=== PATIENT | male | born 1985 | race Caucasian/White ===

== ENCOUNTER 2016-10-26 12:29 | Emergency (ER) | payer SELFPAY ==
[2016-10-26 12:51] VITALS: BP 137/77
--- NOTE | 2016-10-26 12:53 | ER Document Report ---
HPI - HPI Patient complains to provider of: toothache, abscess Onset: Other - few days Onset/Duration: Gradual Quality of pain: Throbbing Pain Level: 2 Context: 30-year-old male thinks he is a dental abscess due to dental decay. There is pain and swelling to his upper right gingiva and sees what he thinks was a pimple. No fever or chills. No facial swelling. Associated Symptoms: None Exacerbated by: Denies Relieved by: Denies Similar symptoms previously: Yes Recently seen / treated by doctor: No - ROS ROS below otherwise negative: Yes Systems Reviewed and Negative: Yes All other systems reviewed and negative Past Medical History - General Information source: Patient - Social History Smoking Status: Current Every Day Smoker Frequency of alcohol use: None Drug Abuse: None Lives with: Family Family History: Reviewed & Not Pertinent - Medical History Medical History: Negative Surgical Hx: Negative - Immunizations Hx Diphtheria, Pertussis, Tetanus Vaccination: Yes - tetanus 02/19/14 Vertical Provider Document - CONSTITUTIONAL Agree With Documented VS: Yes Exam Limitations: No Limitations - HEENT HEENT: Normocephalic Notes: Multiple decayed teeth and gingivitis. He does have a dental abscess it looks like it is draining above the second bicuspid on top right. - NECK Neck: Supple - NEURO Level of Consciousness: Awake, Alert - DERM Integumentary: Warm, Dry Discharge - Discharge Clinical Impression: dental pain and decay Condition: Good Disposition: HOME, SELF-CARE Instructions: Dentist, Dental Infection or Abscess ([facility]), Penicillin V K ([facility]) , Anti-Inflammatory Medication ([facility]) Additional Instructions: see the dentist warm compress to er if worse Please complete the patient satisfaction survey if you get one, and return it.. If you do not receive a survey, then you can go to the [facility] website, [email or web address] and place your comments about your very good care. Thank you very much. It was a pleasure being your medical provider today. Prescriptions: Ibuprofen [Motrin 800 mg Tablet] 800 mg PO Q8HP PRN #30 tablet PRN Reason: Penicillin V Potassium [Penicillin Vk 500 mg Tablet] 500 mg PO QID #40 tablet
== END 2016-10-26 13:12 | disposition home or self-care (01) ==
LOC: ER 12:29
DX: K04.7 Periapical abscess without sinus (principal); K08.89 Other specified disorders of teeth and supporting structures; F17.200 Nicotine dependence, unspecified, uncomplicated
CPT/HCPCS: 99282

== ENCOUNTER 2020-01-28 09:14 | Emergency (ER) | payer SELFPAY ==
[2020-01-28 09:18] VITALS: BP 118/81
== END 2020-01-28 10:00 | disposition left against medical advice (07) ==
LOC: ER 09:14
DX: Z53.21 Procedure and treatment not carried out due to patient leaving prior to being seen by health care provider (principal); T14.8XXA Other injury of unspecified body region, initial encounter